=== PATIENT | female | born 1995 | race African-American/Black ===

== ENCOUNTER 2020-10-05 16:21 | Emergency (ER) | payer OTHER, SELFPAY ==
[2020-10-05 16:50] VITALS: BP 103/61; PULSE 85; RESP 20; TEMP 37.1; O2SAT 100
--- NOTE | 2020-10-05 18:03 | ED.GENADULT ---
HPI - General Adult General Chief complaint: Upper Respiratory Infection Stated complaint: unspecified Time Seen by Provider: 10/05/20 18:01 Source: patient and RN notes reviewed Mode of arrival: ambulatory Limitations: no limitations History of Present Illness HPI narrative: Patient presents today requesting a COVID-19 test. She was exposed to COVID-19 5 days ago by a family member. Denies any symptoms. Brother does currently have symptoms MD complaint: COVID-19 test Related Data Allergies Allergy/AdvReac Type Severity Reaction Status Date / Time No Known Allergies Allergy Mild Verified 01/24/10 17:47 Review of Systems Review of Systems: Narrative: CONSTITUTIONAL: Denies body aches, fever, chills, or sweats. EYES: Denies visual changes, redness, or discharge. ENT: Denies rhinorrhea, congestion, sore throat, or otalgia. CARDIOVASCULAR: Denies chest pain, palpitations, or edema. RESPIRATORY: Denies cough or dyspnea. GASTROINTESTINAL: Denies abdominal pain, nausea, vomiting, or diarrhea. GENITOURINARY: Denies dysuria or hematuria. SKIN: Denies rash, itching, or wounds. MUSCULOSKELETAL: Denies back pain, joint pain, or myalgia. NEUROLOGIC: Denies headache, numbness, tingling, or weakness. PSYCH: Denies depression or anxiety. PMFSH Comments At time of signature, I have reviewed and agree with nursing past medical, surgical, social and family history unless otherwise noted. Please see nursing chart for further information. There is no relevant family history pertinent to the presenting complaint Exam Narrative: Exam Narrative: GENERAL: Well-appearing, well-nourished, and in no acute distress. HEAD: Normocephalic, atraumatic. EYES: EOMI. No redness or drainage. Conjunctivae normal. ENT: Mucous membranes pink and moist. NECK: Normal AROM. CHEST: No respiratory distress. EXTREMITIES: Normal range of motion. No edema. SKIN: Warm, dry, no rash. Capillary refill normal. Normal skin turgor. NEURO: No focal deficits. Alert and oriented x3. Gait steady. PSYCH: Normal affect. No signs of depression or anxiety. Course Vital Signs Vital signs: Vital Signs Temperature 98.7 F 10/05/20 16:50 Pulse Rate 85 10/05/20 16:50 Respiratory Rate 20 10/05/20 16:50 Blood Pressure 103/61 10/05/20 16:50 Pulse Oximetry 100 10/05/20 16:50 Temperature 98.7 F 10/05/20 16:50 Pulse Rate 85 10/05/20 16:50 Respiratory Rate 20 10/05/20 16:50 Blood Pressure 103/61 10/05/20 16:50 Pulse Oximetry 100 10/05/20 16:50 Reviewed Medical Decision Making Differential Diagnosis Differential Diagnosis: COVID-19, worried well Vital Signs Vital Signs: Vital Signs Temperature 98.7 F 10/05/20 16:50 Pulse Rate 85 10/05/20 16:50 Respiratory Rate 20 10/05/20 16:50 Blood Pressure 103/61 10/05/20 16:50 Pulse Oximetry 100 10/05/20 16:50 Temperature 98.7 F 10/05/20 16:50 Pulse Rate 85 10/05/20 16:50 Respiratory Rate 20 10/05/20 16:50 Blood Pressure 103/61 10/05/20 16:50 Pulse Oximetry 100 10/05/20 16:50 Lab Data Lab results reviewed: Yes I reviewed the patient's lab results. Labs: Lab Results 10/05/20 Range/Units 17:26 POC SARS CoV-2 Ag Negative (Negative) Critical Care Time Critical Care Time Critical Care Time: No Discharge Plan Discharge Clinical Impression: Lab test negative for COVID-19 virus Patient Disposition: Home, Self-Care Condition: Stable Additional Instructions: Your COVID-19 test is negative today. Please follow-up with your PCP with any additional concerns. Patient Language: Welsh Follow-up/Referrals: UNKNOWN,DOCTOR [Primary Care Provider] - Time of Disposition: 18:08
== END 2020-10-05 18:25 | disposition home or self-care (01) ==
PROVIDERS: Emergency Provider Nurse Practitioner
DX: Z20.822 Contact with and (suspected) exposure to COVID-19 (principal)
CPT/HCPCS: 87426; 99213; C9803; G0463